=== PATIENT | male | born 1955 | race Caucasian/White ===

== ENCOUNTER 2024-02-21 09:29 | Emergency (ER) | payer MEDICARE, OTHER ==
[~2024-02-21] VITALS: Ht 177.8 cm; Wt 97.7 kg
[2024-02-21 10:21] LABS: BASO # 0.02 K/mm3 (0.02-0.10); EOS # 0.18 K/mm3 (0.04-0.40); EOS % 3.3 % (0.0-4.0); HEMATOCRIT 50.5 % (42.0-52.0); HEMOGLOBIN 16.2 g/dL (13.5-18.0); LYMPH# 1.01 K/mm3 (1.50-4.00); MEAN CELL VOLUME 95 fl (78-100); MEAN CORPUSCULAR HEMOGLOBIN 30 pg (27-31); MEAN CORPUSCULAR HGB CONC 32 g/dL (33-37); MEAN PLATELET VOLUME 10.7 fl (7.4-10.4); MONO # 0.52 K/mm3 (0.20-0.80); NEU # 3.66 K/mm3 (1.40-6.50); PLATELET COUNT 130 K/mm3 (130-400); RED BLOOD COUNT 5.34 M/mm3 (4.20-5.60); RED CELL DISTRIBUTION WIDTH 11.9 % (11.5-14.5); WHITE BLOOD COUNT 5.4 K/mm3 (4.8-10.8)
[2024-02-21] MEDS ORDERED: Orphenadrine 60 MG/2ML AMP IM ONE (10:30)
[2024-02-21] MEDS ORDERED: Ketorolac 30 MG/ML VIAL IM ONE (10:30)
[2024-02-21 10:31] LABS: CALCIUM 9.6 mg/dL (8.3-10.5)
[2024-02-21 11:16] LABS: PH-URINE 5.5 (5.0 - 8.0); URINE APPEARANCE CLEAR (CLEAR); URINE BILIRUBIN NEGATIVE (NEGATIVE); URINE BLOOD NEGATIVE (NEGATIVE); URINE COLOR DARK YELLOW (YELLOW); URINE GLUCOSE NEGATIVE (NEGATIVE); URINE KETONE 1+ (NEGATIVE); URINE LEUKOCYTE ESTERASE NEGATIVE (NEGATIVE); URINE MUCUS PRESENT (NOT PRESENT); URINE NITRATE NEGATIVE (NEGATIVE); URINE PROTEIN(semi-quant) NEGATIVE (NEGATIVE); URINE WBC 0-1 /hpf (0-3)
[2024-02-21] MEDS ORDERED: ORPHENADRINE C100 MG PO (11:29)
[2024-02-21] MEDS ORDERED: KETOROLAC10 MG PO (11:29)
[2024-02-21 11:45] VITALS: BP 112/77
[2024-02-21] MEDS ORDERED: ATORVASTATIN CA10 MG PO (13:38)
[2024-02-21] MEDS ORDERED: CARBIDOPA/LEVOD1 TA2 PO (13:40)
[2024-02-21] MEDS ORDERED: ESCITALOPRAM10 MG PO (13:40)
[2024-02-21] MEDS ORDERED: KAPSPARGO SPRIN25 MG PO (13:40)
[2024-02-21] MEDS ORDERED: OMEPRAZOLE40 MG PO (13:41)
[2024-02-21] MEDS ORDERED: AZILECT1 MG PO (13:41)
[2024-02-21] MEDS ORDERED: PRAMIPEXOLE D0.25 MG PO (13:41)
[2024-02-21] MEDS ORDERED: ASPIRIN 32325 MG/TAB PO (13:42)
[2024-02-21] MEDS ORDERED: CULTURELLE1 EACH PO (13:44)
[2024-02-21] MEDS ORDERED: TYLENOL 8 HOUR650 M1 PO (13:46)
[2024-02-21] MEDS ORDERED: MELATONIN5 M3 PO (13:48)
[2024-02-21] MEDS ORDERED: METAMUCIL POWD174 GM PO (13:48)
[2024-02-21] MEDS ORDERED: NASONEX 24HR AL17 ML NS (13:49)
[2024-02-21] MEDS ORDERED: MUCINEX 60600 MG/TA1 PO (13:59)
[2024-02-21] MEDS ORDERED: VIAGRA 25MG TAB25 MG PO (14:00)
[2024-02-21] MEDS ORDERED: MIRALAX17 GM PO (14:00)
== END 2024-02-21 11:46 | disposition home or self-care (01) ==
LOC: ED 09:29
PROVIDERS: Family Medicine
DX: M54.50 Low back pain, unspecified (principal); Z91.040 Latex allergy status
CPT/HCPCS: J1885; J2360